=== PATIENT | male | born 1995 | race Caucasian/White ===

== ENCOUNTER 2024-04-09 07:38 | Emergency (ER) | payer MEDICAID, SELFPAY ==
[2024-04-09 07:50] VITALS: BP 155/66; PULSE 85; RESP 20; TEMP 36.8; O2SAT 99; BMI 30.1
--- NOTE | 2024-04-09 08:05 | ED_ITS ---
HPI - General Adult General Date Seen: 04/09/24 Chief complaint: Chest Pain Stated complaint: Chest pain Time Seen by Provider: 04/09/24 08:04 History of Present Illness HPI narrative: 28 yo male with no past medical history, nonsmoker, nondrinker, presenting to [facility] ER today with chest pain. He notes that he was exposed to a lot of dust at work a few days ago, (probably Friday) and had a lot of coughing when he was removing a plaster wall and sawdust. He woke up the following morning, probably Friday, maybe Friday? ) With some discomfort in his central upper chest. It felt a little bit tight. Since then he has had chest discomfort and sometimes pleuritic pain left side of his chest with breathing. It tends to be worse when he lays down and better when he sits up. It is not related to exertion. It has been continuous. Mostly very mild rating 1-2/10 but this morning it was more severe rating 6-7/10. No palpitations. No pain through to his back. No abdominal pain. No nausea. No swelling in his legs. No recent travel. He has a family history of ?heart problems? in his mother and his grandmother. His mother apparently had palpitations. His grandmother apparently had strokes. It does not sound like he has a family history of premature coronary artery disease or stents. No known history of DVT/PE. Related Data Previous Rx's ?Medication ?Instructions ?Recorded ibuprofen 800 mg tablet 800 mg PO Q8H #30 tabs 04/09/24 Allergies Allergy/AdvReac Type Severity Reaction Status Date / Time No Known Drug Allergies Allergy Verified 04/09/24 07:50 PFSH PFS Social History Smoking Status: Never smoker Do you use any of these nicotine containing products: None How often do you have a drink containing alcohol: never AUDIT-C Alcohol total score: 0 Non-prescribed substance use: denies use Exam Narrative: Exam Narrative: Constitutional: Appears well-developed and well-nourished. Alert. Conversant. Non toxic. HENT: Head: Atraumatic. Nose: Nose normal. Mouth/Throat: Oral mucosa is clear and moist. no trismus. Pharynx normal. Eyes: Conjunctivae normal. EOM normal. Pupils equal, round, and reactive to light. No scleral icterus. Neck: Normal range of motion. Neck supple. No tracheal deviation present. No JVD Cardiovascular: Normal rate, regular rhythm. No gallop. No friction rub. No murmur heard. Symmetric radial artery pulses Pulmonary/Chest: Effort normal. No stridor. No respiratory distress. No wheezes. No rales. No rhonchi . No tenderness. Abdominal: Soft.No distension. No mass. No tenderness. No rebound. No guarding. Musculoskeletal: RUE: Normal range of motion. No tenderness. No deformity LUE: Normal range of motion. No tenderness. No deformity RLE: Normal range of motion. No edema. No tenderness. No deformity LLE: Normal range of motion. No edema. No tenderness. No deformity Neurological: Alert and oriented to person, place, and time. Normal strength. CN II-VII intact. No sensory deficit. GCS eye subscore is 4. GCS verbal subscore is 5. GCS motor subscore is 6. Normal coordination Skin: Skin is warm and dry. No rash noted. No pallor. Normal capillary refill. Psychiatric: Normal mood. Normal affect. Const: Vital Signs, click to edit/add: Vital Signs - 24 hr 04/09/24 07:50 Temperature 98.2 F Pulse Rate [Pulse Oximeter] 85 Respiratory Rate 20 Blood Pressure [Ri ght Upper Arm] 155/66 H Pulse Oximetry 99 Oxygen Delivery Me thod Room Air Course Course ED Course: Recheck-stable. Comfortable while sitting up in bed. Breathing easily. Discussed results and plan of care. Patient agreeable. Vital Signs Vital signs: Initial Vital Signs Temperature 98.2 F 04/09/24 07:50 Temperature Source Temporal Artery Scan 04/09/24 07:50 Pulse Rate 85 04/09/24 07:50 Respiratory Rate 20 04/09/24 07:50 Blood Pressure 155/66 H 04/09/24 07:50 Blood Pressure Mean 95 04/09/24 07:50 Pulse Oximetry 99 04/09/24 07:50 Oxygen Delivery Method Room Air 04/09/24 07:50 Vital Signs Temperature 98.2 F 04/09/24 07:50 Pulse Rate 85 04/09/24 07:50 Respiratory Rate 20 04/09/24 07:50 Blood Pressure 155/66 H 04/09/24 07:50 Pulse Oximetry 99 04/09/24 07:50 Oxygen Delivery Method Room Air 04/09/24 07:50 Temperature 98.2 F 04/09/24 07:50 Pulse Rate 85 04/09/24 07:50 Respiratory Rate 20 04/09/24 07:50 Blood Pressure 155/66 H 04/09/24 07:50 Pulse Oximetry 99 04/09/24 07:50 Oxygen Delivery Method Room Air 04/09/24 07:50 Medications Administered Medications: Discontinued Medications Generic Name Dose Route Start Last Admin Trade Name Hector PRN Reason Stop Dose Admin Aspirin 324 mg 04/09/24 08:19 04/09/24 08:25 Aspirin 81 Mg Tab.Chew PO 04/09/24 08:20 324 mg ONCE ONE Administration Medical Decision Making MDM Narrative Medical decision making narrative: This patient presents to the ER today for evaluation of chest pain ongoing for the past 2 days or so since he woke up either Friday morning or Friday. He had been exposed to lot of dust and plaster dust at work on the afternoon prior to onset of his symptoms.. Differential was broad. No evidence of palpitations, syncope or other cardiac dysrhythmia. We considered possible ACS, however workup with EKG and troponin is negative. HEART score is 1. Given time since onset of symptoms, I do not think the patient needs to be admitted for further sets of enzymes. He has atypical chest pain so consider pericarditis. EKG shows no evidence for pericarditis. Clinical presentation not suggestive of myocarditis. CRP minimally elevated at 1.1. Will try him on a course of ibuprofen. Without definitive evidence for pericarditis would hold off on colchicine for now. However, clinically, based on description of symptoms, location of pain, atypical nature of the pain, positional component I suspect that this maybe it acute pericarditis Chest x-ray shows no evidence for pneumonia, pneumothorax, pulmonary edema, pleural effusion, rib fracture, cardiomegaly. Mediastinum is normal on the x-ray. The patient has no ripping or tearing pain through to the back and has symmetric pulses on exam, no other acute neuro findings so I doubt aortic dissection. Risk of radiation and contrast exposure would outweigh the benefit of CT angiogram. We considered PE for this patient. He is overall very low risk. He is negative by PERC. Therefore will hold off on D-dimer testing or CT PA given the risk of radiation exceeding the potential benefit He was exposed to dust at work yesterday which raises concern for bronchospasm. No wheezing or bronchospasm to suggest COPD/asthma. No signs of chest wall cellulitis, shingles, injury. With reasonable clinical confidence, I think the patient is safe for outpatient follow up. Discussed return precautions. Questions answered. Patient voices comfort with the plan. Lab Data Labs: Lab Results 04/09/24 Range/Units 08:31 WBC 9.78 (4.50-11.00) K/uL RBC 5.42 (4.30-5.90) m/uL Hgb 15.7 (13.5-17.5) gm/dL Hct 47.6 (37.0-53.0) % MCV 88 (80-100) fL MCH 29 (26-34) pg MCHC 33 (32-36) gm/dL RDW Coeff of [employer] 12.6 (11.5-15.5) % Plt Count 332 (140-440) K/uL Neut % (Auto) 75.1 H (42.0-72.0) % Lymph % (Auto) 16.9 L (20-44) % [place] % (Auto) 7.0 (0.0-11.0) % Eos % (Auto) 0.7 (0.0-7.0) % Baso % (Auto) 0.1 (0.0-3.0) % Neut # (Auto) 7.30 H (1.7-7.0) K/uL Lymph # (Auto) 1.70 (0.90-2.90) K/uL [place] # (Auto) 0.70 (0.00-0.90) K/UL Eos # (Auto) 0.07 (0.00-0.50) K/uL Baso # (Auto) 0.01 (0.00-0.30) K/uL Abs Immat Gran (auto) 0.02 (0.00-0.30) K/uL Imm/Tot Granulo (auto) 0.2 % Sodium 138 (135-149) mmol/L Potassium 4.1 (3.6-5.1) mmol/L Chloride 106 (96-114) mmol/L Carbon Dioxide 25 (20-32) mmol/L Anion Gap 7 (7-15) mEq/L BUN 12 (5-24) mg/dL Creatinine 0.8 (0.5-1.5) mg/dL Estimated Creat Clear 139.41 Estimated GFR 122 ml/min Glucose 86 (60-115) mg/dL Calcium 9.2 (8.4-10.6) mg/dL Troponin I < 0.01 L (0.01-0.04) ng/mL C-Reactive Protein 1.1 H (0.5-1.0) mg/dL Imaging Data Chest x-ray: Attestation: I have reviewed the pertinent imaging results. Radiologist's impression: FINDINGS: The lungs are clear. The heart, mediastinum and pulmonary vessels are of normal size. There is no evidence of pleural disease. IMPRESSION: Negative chest. ECG Data Attestation: I personally reviewed and interpreted this ECG as follows: Interpretation: Normal sinus rhythm Rate: 84 ND: 138 QRS axis: Normal ST segment/T wave: No ST segment elevation or depression. No EKG evidence for pericarditis. No ST segment elevation or ND depression. QTc: 430 Discharge Plan Discharge Clinical Impression: Chest pain Patient Disposition: Home, Self-Care Condition: Stable Instructions: Chest Pain (DC), Acute Pericarditis (ED) Additional Instructions: As we discussed, we do not know the cause for your chest pain with certainty at this time. However I suspect your chest pain is probably 1 of 2 things. Your chest pain could be related to irritation of your bronchial passages because of all the dust you breathed in at work. We can treat this with anti-inflammatories. Please watch carefully and if you get more trouble breathing, come back to the ER so we can double check for wheezing and asthma induced by the dust. Your pain could also be related to irritation of the sac around your heart (the sac is call the pericardium). To treat for pericarditis, we are going to treat you with anti-inflammatories. Please start taking the ibuprofen 3 times daily. Take it with food to help avoid stomach upset. Monitor your symptoms carefully and if you have worsening pain, high fever, worsening trouble breathing you should come back to the ER right away to be rechecked. Prescriptions: New ibuprofen 800 mg tablet 800 mg PO Q8H Qty: 30 0RF Follow Up/Referrals: Provider,Not a Local [Non-Staff] - Stand Alone Forms: [employer] Info Instructions
--- NOTE | 2024-04-09 08:19 | CRLHL7_ITS ---
For Patients: As a result of the Century Cures Act, medical imaging exams and procedure reports are released immediately into your electronic medical record. You may view this report before your referring provider. If you have questions, please contact your health care provider. INDICATION: Chest pain TECHNIQUE: Two view chest. FINDINGS: The lungs are clear. The heart, mediastinum and pulmonary vessels are of normal size. There is no evidence of pleural disease. IMPRESSION: Negative chest. Dictated by Ana Ram MD @ 04/09/2024 8:39:44 AM (Electronically Signed)
[2024-04-09] MEDS: ASPIRIN 81 MG TAB.CHEW 324 MG PO (08:25)
[2024-04-09 08:43] LABS: Basophils Absolute Auto 0.01 K/uL (0.00-0.30); Basophils Percent Auto 0.1 % (0.0-3.0); Eosinophils Absolute Auto 0.07 K/uL (0.00-0.50); Eosinophils Percent Auto 0.7 % (0.0-7.0); Hematocrit 47.6 % (37.0-53.0); Hemoglobin* 15.7 gm/dL (13.5-17.5); Immature Granulocytes Abs Auto 0.02 K/uL (0.00-0.30); Immature Granulocytes Pct Auto 0.2 %; Lymphocytes Percent Auto 16.9 % (20-44); Mean Corpuscular HGB Conc 33 gm/dL (32-36); Mean Corpuscular Hemoglobin 29 pg (26-34); Mean Corpuscular Volume 88 fL (80-100); Neutrophils Percent Auto 75.1 % (42.0-72.0); Platelet Count* 332 K/uL (140-440); RDW Coefficient of Variation % 12.6 % (11.5-15.5); Red Blood Count 5.42 m/uL (4.30-5.90); White Blood Count* 9.78 K/uL (4.50-11.00)
[2024-04-09 08:47] LABS: Slide Review Reflex No
[2024-04-09 09:08] LABS: Chloride* 106 mmol/L (96-114); Potassium* 4.1 mmol/L (3.6-5.1); Sodium* 138 mmol/L (135-149)
[2024-04-09 09:10] LABS: Creatinine* 0.8 mg/dL (0.5-1.5)
[2024-04-09 09:11] LABS: Anion Gap 7 mEq/L (7-15); Blood Urea Nitrogen* 12 mg/dL (5-24); Carbon Dioxide* 25 mmol/L (20-32); Est. Creatinine Clearance* 139.41; Estimated Glomerular Filt Rate 122 ml/min; Glucose* 86 mg/dL (60-115)
[2024-04-09 09:12] LABS: Calcium* 9.2 mg/dL (8.4-10.6)
[2024-04-09 09:14] LABS: C Reactive Protein* 1.1 mg/dL (0.5-1.0)
[2024-04-09 09:28] LABS: Troponin I* < 0.01 ng/mL (0.01-0.04)
== END 2024-04-09 10:03 | disposition home or self-care (01) ==
PROVIDERS: Emergency Provider Emergency Medicine; PCP Physician Assistant Medical
DX: R07.9 Chest pain, unspecified (principal)
CPT/HCPCS: 36415; 71046; 80048; 84484; 85025; 86140; 93005; 99283; 99284; 99285; A9270